=== PATIENT | female | born 2000 | race Caucasian/White ===

== ENCOUNTER 2019-04-07 03:42 | Emergency (ER) | payer MEDICAID, OTHER ==
[2019-04-07] MEDS ORDERED: FENTANYL CITRATE INJ/PF 100 MCG/2 ML AMPUL IV ONE ×2 (04:16→08:01)
[2019-04-07] MEDS ORDERED: ACETAMINOPHEN 325 MG TABLET PO ONE (04:17)
[2019-04-07] MEDS ORDERED: ONDANSETRON HCL INJ/PF 4 MG/2 ML SDV IV ONE (04:17)
--- NOTE | 2019-04-07 04:23 | ER Document Report ---
ED Fever <CATALINAKARELY KRUGER - Last Filed: 04/07/19 09:50> <OLIVE CASTRO - Last Filed: 04/07/19 20:25> - General Chief Complaint: Fever Stated Complaint: FEVER Time Seen by Provider: 04/07/19 04:03 Primary Care Provider: CURT BARKER NP [Primary Care Provider] - Follow up as needed Notes: Patient is a 18-year-old female with a complicated medical history including Crohn's disease with secondary G-tube J-tube (with TPN feedings exclusively), anemia, connective tissue disorder (Catracho-Danlos), Jeancarlos's thyroiditis, gastropathy reflux disease, and recent sepsis causing removal of her port that comes emergency department for chief complaint of fever that started tonight. Mom states the sepsis was noted to be staph and she thinks the source was the port. Mom states patient started shivering and was noted to have a fever tonight prior to arrival. She comes by EMS. Patient reports some generalized body aches and especially pain in her lower back. Patient denies sore throat, headache, cough, dysuria, abdominal pain, chest pain. She states she has some vague nausea. Patient has a current right-sided PICC line in, she has also been receiving vancomycin for recent C. difficile colitis and she completed her last dose through the PICC line today. (OLIVE CASTRO) - Related Data Allergies/Adverse Reactions: adhesive Allergy (Verified 04/07/19 06:32) azithromycin Allergy (Verified 04/07/19 06:28) cefoxitin Allergy (Verified 04/07/19 06:29) chlorhexidine Allergy (Verified 04/07/19 06:26) erythromycin base Allergy (Verified 04/07/19 06:32) lactose Allergy (Verified 04/07/19 06:32) lactulose Allergy (Verified 04/07/19 06:30) melatonin Allergy (Verified 04/07/19 06:27) metoclopramide Allergy (Verified 04/07/19 06:32) morphine Allergy (Verified 04/07/19 06:27) vancomycin Allergy (Verified 04/07/19 06:32) Past Medical History - General Information source: Patient, Parent - Social History Smoking Status: Never Smoker Frequency of alcohol use: None Drug Abuse: None Lives with: Family Family History: Reviewed & Not Pertinent <OLIVE CASTRO - Last Filed: 04/07/19 20:25> Review of Systems - Review of Systems Constitutional: See HPI EENT: No symptoms reported Cardiovascular: No symptoms reported Respiratory: No symptoms reported Gastrointestinal: See HPI Genitourinary: No symptoms reported Female Genitourinary: No symptoms reported Musculoskeletal: No symptoms reported Skin: No symptoms reported Hematologic/Lymphatic: No symptoms reported Neurological/Psychological: No symptoms reported <OLIVE CASTRO - Last Filed: 04/07/19 20:25> Physical Exam <OLIVE CASTRO - Last Filed: 04/07/19 20:25> - Vital signs Vitals: Resp Pulse Ox 19 100 04/07/19 04:13 04/07/19 04:13 - Notes Notes: GENERAL: Patient is pale, however she is alert, she has chronically ill appearance HEAD: Normocephalic, atraumatic. EYES: Pupils equal, round, and reactive to light. Extraocular movements intact. ENT: Oral mucosa moist, tongue midline. Oropharynx unremarkable except for small left tonsillar stone. Airway patent. Nares patent, no nasal septal hematoma NECK: Full range of motion. Supple. Trachea midline. LUNGS: Clear to auscultation bilaterally, no wheezes, rales, or rhonchi. No respiratory distress. HEART: Regular rate and rhythm. No murmur ABDOMEN: G-tube and J-tube present, there is generalized abdominal tenderness which is not severe, there is no guarding or rebound tenderness. GENITOURINARY: Deferred EXTREMITIES: Moves all 4 extremities spontaneously. No edema, normal radial and dorsalis pedis pulses bilaterally. No cyanosis. PICC line in place in the right distal arm, this is mildly pink and slightly warm but there is no notable erythema, there is no tenderness, there is no notable warmth. Patient denies pain in the area. Remaining extremities unremarkable. BACK: no cervical, thoracic, lumbar midline tenderness. No saddle anesthesia, normal distal neurovascular exam. Moves all extremities in full range of motion. NEUROLOGICAL: Alert and oriented x3. Normal speech. Cranial nerves II through XII grossly intact. PSYCH: Normal affect, normal mood. SKIN: Pale (OLIVE CASTRO) Course - Laboratory Result Diagrams: 04/07/19 04:03 04/07/19 05:17 <KARELY RANDOLPH - Last Filed: 04/07/19 09:50> - Laboratory Result Diagrams: 04/07/19 04:03 04/07/19 05:17 <OLIVE CASTRO - Last Filed: 04/07/19 20:25> - Re-evaluation Re-evalutation: 04/07/19 09:50 I accepted the patient from [facility]. CT abdomen/pelvis showed some inflammatory changes in the colon and the rectum with no evidence of ulcerations consistent with Crohn's. The radiologist commented that the surgical J-tube could potentially be out of the lumen so I followed up and spoke with Dr. Byrne who looked at the sagittal view and stated that it appeared to be in place. This correlates with the patient who states that it is functioning clinically. I briefly spoke with Dr. Gilbert about it and plan is for patient to follow-up at her appointment today at 15 her an outpatient lab slip for stool studies. Patient is currently afebrile and vital signs are within normal limits. At this time there is no evidence of an abdominal abscess and I have low concern for SBP based on lab work and clinical picture. I explained this to mom and patient and they are in agreement with plan. Stable for discharge. (KARELY RANDOLPH) Patient initially borderline tachycardic with fever of 100.6 per EMS. Given Tylenol, I did give a small amount of fentanyl for generalized pain because patient reports pain in her back. Suspect this is related to the fever as well. No specific CVA tenderness. No hypotension. Patient does not have a headache, clear lungs, no overt infection in the PICC line in the right arm. Cultures obtained from peripheral IV and PICC line. CBC unremarkable with some anemia but no leukocytosis or shift/bands, hemorrhage unremarkable, lactic acid unremarkable, urinalysis unremarkable, chest x-ray unremarkable. I am unsure the source of fever. After treatment of fever borderline tachycardia resolved. Discussed with Dr. Gilbert. She recommends CT of the abdomen/pelvis because of generalized abdominal pain, complicated medical history, fever of unknown origin, no source at this time. Discussed with patient/mom, they state agreement with plan. 04/07/19 08:01 Introduced to Paul YEE at bedside pending CAT scan results and disposition. (OLIVE CASTRO) - Vital Signs Vital signs: Temp Pulse Resp BP Pulse Ox 97.9 F 16 113/59 L 97 04/07/19 10:13 04/07/19 07:01 04/07/19 07:00 04/07/19 07:01 - Laboratory Laboratory results interpreted by me: 04/07/19 04/07/19 04:03 05:17 RBC 3.51 L Hgb 10.8 L Hct 31.8 L RDW 14.2 H Lymph % (Auto) 9.1 L [place] % (Auto) 1.3 L Seg Neutrophils % 88.5 H Sodium 136.7 L Calcium 8.3 L Albumin 3.5 L Discharge <KARELY RANDOLPH - Last Filed: 04/07/19 09:50> <OLIVE CASTRO - Last Filed: 04/07/19 20:25> - Discharge Clinical Impression: Fever Qualifiers: Fever type: unspecified Qualified Code(s): R50.9 - Fever, unspecified Abdominal pain Qualifiers: Abdominal location: unspecified location Qualified Code(s): R10.9 - Unspecified abdominal pain Condition: Stable Disposition: HOME, SELF-CARE Additional Instructions: You were seen in the emergency department overnight for a fever and abdominal pain. Your lab work was all very reassuring and the blood cultures are still pending and have not resulted yet. The CT of your abdomen did not show anything concerning like an abscess or any perforation in your bowel. After discussing with another radiologist the surgical J-tube is in place. This is reassuring and also because it is working further reassures us. Please follow-up with your appointment at 3 PM today with your primary doctor. Please return to the emergency department if you develop severe, intractable pain you cannot control at all, you have intractable nausea or vomiting, you pass out, or you have any other concerning symptoms to you. We have given you a copy of the discs of the imaging and I have printed out your lab work for you. Referrals: CURT BARKER NP [Primary Care Provider] - Follow up as needed
[2019-04-07 04:35] LABS: ABSOLUTE EOSINOPHILS # (AUTO) 0.1 10^3/uL (0.0-0.6); ABSOLUTE LYMPHOCYTES (AUTO) 0.6 10^3/uL (0.5-4.7); ABSOLUTE MONOCYTES (AUTO) 0.1 10^3/uL (0.1-1.4); ABSOLUTE NEUT (AUTO) 5.6 10^3/uL (1.7-8.2); BASOPHILS % (AUTO) 0.2 % (0-2); EOSINOPHILS % (AUTO) 0.9 % (0-6); HEMATOCRIT 31.8 % (36.0-47.0); HEMOGLOBIN 10.8 g/dL (12.0-15.5); LYMPHOCYTES % (AUTO) 9.1 % (13-45); MEAN CORPUSCULAR HEMOGLOBIN 30.8 pg (27.0-33.4); MEAN CORPUSCULAR HGB CONC 33.9 g/dL (32.0-36.0); MEAN CORPUSCULAR VOLUME 91 fl (80-97); MONOCYTES % (AUTO) 1.3 % (3-13); PLATELET COUNT 212 10^3/uL (150-450); RED BLOOD COUNT 3.51 10^6/uL (3.72-5.28); RED CELL DISTRIBUTION WIDTH 14.2 % (11.5-14.0); SEGMENTED NEUTROPHILS % (AUTO) 88.5 % (42-78); TOTAL CELLS COUNTED % (AUTO) 100 %; WHITE BLOOD COUNT 6.3 10^3/uL (4.0-10.5)
--- NOTE | 2019-04-07 04:52 | RADIOLOGY REPORT (SQ) ---
CLINICAL HISTORY: fever COMPARISON: None. TECHNIQUE: XR CHEST 1 VIEW 04/07/2019 4:15 AM CDT FINDINGS: Cardiac silhouette is normal in size. Lungs are clear without consolidation, atelectasis, mass or edema. There is no pleural effusion. There is no pneumothorax. There are no acute osseous findings. Right PICC line tip is in the right brachiocephalic vein. IMPRESSION: Clear lungs.
[2019-04-07 05:50] LABS: VENOUS BLOOD HCO3 22.1 mmol/L (20-32); VENOUS BLOOD PCO2 39.8 mmHg (35-63); VENOUS BLOOD PH 7.36 (7.30-7.42)
[2019-04-07 05:50] LABS: APPEARANCE,URINE CLEAR; BILIRUBIN,URINE NEGATIVE (NEGATIVE); COLOR,URINE YELLOW; GLUCOSE, URINE NEGATIVE (NEGATIVE); KETONES,URINE NEGATIVE (NEGATIVE); LEUKOCYTE ESTERASE,URINE NEGATIVE (NEGATIVE); NITRITE,URINE NEGATIVE (NEGATIVE); PROTEIN,URINE NEGATIVE (NEGATIVE); URINE SPECIFIC GRAVITY 1.012; UROBILINOGEN,URINE NEGATIVE mg/dL (<2.0)
[2019-04-07 05:55] LABS: ALBUMIN 3.5 g/dL (3.7-5.6); ALKALINE PHOSPHATASE 81 U/L (50-135); ANION GAP 7 (5-19); ASPARTATE AMINO TRANSFERASE 28 U/L (5-30); BILIRUBIN,TOTAL 0.3 mg/dL (0.2-1.3); BLOOD UREA NITROGEN 7 mg/dL (7-20); CALCIUM 8.3 mg/dL (8.4-10.2); CARBON DIOXIDE 26 mmol/L (22-30); CHLORIDE 104 mmol/L (98-107); GLUCOSE 101 mg/dL (75-110); POTASSIUM 3.6 mmol/L (3.6-5.0); TOTAL PROTEIN 6.8 g/dL (6.3-8.2)
[2019-04-07 07:16] VITALS: BP 113/59
--- NOTE | 2019-04-07 07:26 | EKG REPORT ---
SEVERITY:- OTHERWISE NORMAL ECG - SINUS TACHYCARDIA : Confirmed by: Adriel Parra 07-Apr-2019 07:25:21
--- NOTE | 2019-04-07 08:02 | RADIOLOGY REPORT (SQ) ---
EXAM DESCRIPTION: CT ABDOMEN PELVIS WITH IV CONTRAST COMPLETED DATE/TME: 04/07/2019 06:41 CLINICAL HISTORY: 18 years, Female, fever, abd pain COMPARISON: None. TECHNIQUE: Axial CT images of the abdomen and pelvis were obtained after the administration of IV contrast. Sagittal and coronal reformats were performed. DLP 552 Images stored on PACS. All CT scanners at this facility use dose modulation, iterative reconstruction, and/or weight based dosing when appropriate to reduce radiation dose to as low as reasonably achievable (ALARA). [facility]: Dose Right [facility]: CareDose [facility]: Dose Right [facility]: Teradose 4D [facility]: Smart Boxee LIMITATIONS: None. FINDINGS: The lung bases are clear. Cholecystectomy. The liver, pancreas, spleen, and adrenal glands are unremarkable. Both kidneys enhance normally. No evidence of hydronephrosis bilaterally. There is no intraperitoneal free air or fluid. The abdominal aorta is normal in caliber. There is no lymphadenopathy. A PEG tube is in place. There is mild dissection of the fluid-filled small bowel. Another percutaneous catheter is noted along the left side abdomen which has its balloon insufflated and appears outside of the small bowel lumen (axial image 46). The appendix is normal. There is distention of the fluid-filled colon and rectum. The uterus, adnexa, and urinary bladder appear unremarkable. There are no lytic or blastic bone lesions IMPRESSION: Mild distention of the fluid-filled small bowel and colon, which is likely due to a gastroenteritis or diarrhea. PEG tube in satisfactory position. Additional percutaneous catheter along the left side of the abdomen which has its balloon insufflated and appears outside of the bowel lumen. TECHNICAL DOCUMENTATION: Quality ID # [id number]: Final reports with documentation of one or more dose reduction techniques (e.g., Automated exposure control, adjustment of the mA and/or kV according to patient size, use of iterative reconstruction technique) copyright 2010 [employer]- All Rights Reserved
== END 2019-04-07 10:13 | disposition home or self-care (01) ==
LOC: ER 03:42
DX: R50.9 Fever, unspecified (principal); R10.9 Unspecified abdominal pain; M79.10 Myalgia, unspecified site; K50.90 Crohn's disease, unspecified, without complications; Z93.1 Gastrostomy status; Z88.6 Allergy status to analgesic agent; Z88.3 Allergy status to other anti-infective agents
CPT/HCPCS: 93005; 96376; 99284; 96374; 96375; 36415; 87040; 87086; 82962; 84703; 85025; 87077; 87088; 80053; 81001; 87186; 82803; 83605; 71045; 74177; 93010; J3490; J3010; J2405